=== PATIENT | female | born 1995 | race Caucasian/White ===

== ENCOUNTER 2021-11-21 16:20 | Emergency (ER) | payer OTHER ==
[~2021-11-21] VITALS: Ht 152.4 cm; Wt 65.3 kg
[2021-11-21] MEDS ORDERED: KETOROLAC TROMETHAMINE 30 MG/ML VIAL IV STA (16:38)
[2021-11-21] MEDS ORDERED: SODIUM CHLORIDE 0.9% 1000ML 1,000 ML IV ONE (16:45)
[2021-11-21] MEDS ORDERED: DIPHENHYDRAMINE HCL 25 MG CAP PO ONE (16:45)
[2021-11-21] MEDS ORDERED: METOCLOPRAMIDE HCL 10 MG TAB PO ONE (16:45)
[2021-11-21] MEDS ORDERED: DEXAMETHASONE SOD PHOS 10 MG/1 ML VIAL IV ONE (16:45)
[2021-11-21] MEDS ORDERED: METOCLOPRAMIDE HCL 10 MG/2ML VIAL IV ONE (17:15)
[2021-11-21] MEDS ORDERED: FIORICET 50-301 EACH PO (17:58)
[2021-11-21] MEDS ORDERED: PROMETHAZINE12.5 M1 PO (17:58)
[2021-11-21] MEDS ORDERED: HYDROCODONE/APAP 5MG-325MG TAB PO ONE ×2 (18:00→18:30)
== END 2021-11-21 18:42 | disposition home or self-care (01) ==
LOC: ER 16:45
DX: R51.9 Headache, unspecified (principal); R11.2 Nausea with vomiting, unspecified
CPT/HCPCS: 70450; 99284; J1100; J1885; J2765; J7030